=== PATIENT | female | born 1960 | race Hispanic/Latino ===

== ENCOUNTER 2024-03-03 03:06 | Observation (INO) | payer SELFPAY ==
[2024-03-03 04:08] LABS: Absolute Lymphocytes (CBC) 1.1 K/uL (0.7-4.9); Absolute Monocytes 0.5 K/uL (0.1-1.3); Absolute Neutrophil 4.1 K/uL (1.8-8.0); Basophils % 0.5 % (0-1.3); Hematocrit 39.1 % (36.0-45.0); Hemoglobin 12.8 g/dL (12.0-15.0); Lymphocytes % 18.5 % (15.3-44.8); MCH 29.2 pg (27.0-35.0); MCHC 32.8 g/dL (32.0-36.0); MCV 89.1 fL (80-100); MPV 8.9 fL (7.6-11.3); Monocytes % 9.5 % (3.3-12.3); Neutrophils % 71.5 % (41.7-73.7); Platelets 261 thou/uL (152-406); RBC Red Blood Cell Count 4.39 M/uL (3.86-4.86); Red Cell Distribution Width 14.9 % (12.1-15.2)
[2024-03-03] MEDS ORDERED: NA CHLORIDE 0.9% 1,000 ML ONE (04:17)
[2024-03-03 04:20] LABS: PT Prothrombin Time 11.5 SECONDS (9.4-12.5); PTT, Activated Partial Thromb 33.3 SECONDS (24.3-36.9); Protime INR 1.05
[2024-03-03 04:37] LABS: ALT/SGPT 18 U/L (13-56); AST/SGOT 18 U/L (15-37); Albumin 3.4 g/dL (3.4-5.0); Alkaline Phosphatase 43 U/L (45-117); Anion Gap 14.8 mEq/L (5.0-15.0); BUN Blood Urea Nitrogen 32 mg/dL (7-18); Bicarbonate 23 mEq/L (21-32); Bilirubin Total 0.6 mg/dL (0.2-1.0); Globulin 3.4 g/dL (2.3-3.5); Glomerular Filtration Rate 76 ml/min (=/>90); Glucose Level 87 mg/dL (74-106); Potassium 3.8 mEq/L (3.5-5.1); Protein, Total 6.8 g/dL (6.4-8.2); Sodium Level 144 mEq/L (136-145)
[2024-03-03 04:37] LABS: Barbiturates NEGATIVE (NEGATIVE); Benzodiazepines NEGATIVE (NEGATIVE); Cocaine NEGATIVE (NEGATIVE); METHAMPHETAM NEGATIVE (NEGATIVE); Methadone NEGATIVE (NEGATIVE); Opiates NEGATIVE (NEGATIVE); Phencyclidine NEGATIVE (NEGATIVE); THC Cannibis NEGATIVE (NEGATIVE)
[2024-03-03 04:38] LABS: Bilirubin Direct < 0.2 mg/dL (0-0.2); Bilirubin Indirect, Calculated 0.4 mg/dL (0.2-0.8)
[2024-03-03 05:52] LABS: Specific Gravity > 1.030 (1.005-1.030); Sqamous Epithelial <5 /HPF (None Seen); Urine Bacteria None Seen /HPF (<20); Urine Bilirubin NEGATIVE (Negative); Urine Blood Negative (Negative); Urine Clarity Clear (Clear); Urine Color Yellow (Yellow); Urine Culture Reflex Order NOT NEEDED; Urine Glucose NEGATIVE (Negative); Urine Ketones 3+ (Negative); Urine Microscopic Reflex YN ORDER UMIC; Urine Mucus 4+ /HPF (None Seen); Urine Nitrite NEGATIVE (Negative); Urine Protein 1+ (Negative); Urine RBC <5 /HPF (None Seen); Urine Urobilinogen 1+ (Normal); Urine WBC <5 /HPF (<5); Urine pH 5.5 (5.0-7.0)
[2024-03-03] MEDS: D5 0.45 NS 1,000 ML IV SCH (06:00)
--- NOTE | 2024-03-03 06:19 | EDPHYS ---
Physician Documentation [facility] Name: Julia Adame Age: 63 yrs Sex: Female : 1960 Arrival Date: 03/03/2024 Time: 03:06 Bed 5 Private MD: ED Physician Royer Hernadez HPI: 03/03 03:24 This 63 yrs old Female presents to ER via EMS with complaints of Altered sp4 Mental Status. 05:03 63-year-old female with unknown name was found by the police station sitting on the sp4 curb. Patient is not speaking. Patient appears homeless and disheveled. . - Immunization history:: unable to obtain. - Infectious Disease History:: unable to obtain. - Social history:: unknown. - Family history:: not pertinent. ROS: 05:03 Constitutional: full ROS not available secondary to nonverbal status sp4 05:03 All other systems are negative, 05:03 Unable to obtain ROS due to patient being uncooperative, Exam: 05:03 Constitutional: This is a well developed, well nourished patient who is awake, sp4 disheveled patient, appears homeless, poor hygiene Head/Face: Normocephalic, atraumatic. Eyes: Pupils equal round and reactive to light, extra-ocular motions intact. Lids and lashes normal. Conjunctiva and sclera are not injected. Cornea within normal limits. Periorbital areas with no swelling, redness, or edema. ENT: Nares patent. No nasal discharge, no septal abnormalities noted. Tympanic membranes are normal and external auditory canals are clear. Oropharynx with no redness, swelling, or masses, exudates, or evidence of obstruction, uvula midline. Mucous membranes moist. Neck: Trachea midline, no thyromegaly or masses palpated, and no cervical lymphadenopathy. Supple, full range of motion without nuchal rigidity, or vertebral point tenderness. Chest/axilla: Normal chest wall appearance and motion. Nontender with no deformity. No lesions are appreciated. Cardiovascular: Regular rate and rhythm with a normal S1 and S2. No gallops, murmurs, or rubs. Normal PMI, no JVD. No pulse deficits. Respiratory: Lungs have equal breath sounds bilaterally, clear to auscultation and percussion. No rales, rhonchi or wheezes noted. No increased work of breathing, no retractions or nasal flaring. Abdomen/GI: Soft, with normal bowel sounds. No distension or tympany. No guarding or rebound. No evidence of tenderness throughout. Back: No spinal tenderness. No costovertebral tenderness. Female : Normal external genitalia. Skin: Warm, dry with normal turgor. Normal color with no rashes, no lesions, and no evidence of cellulitis. MS/ Extremity: Pulses equal, no cyanosis. Neurovascular intact. Full, normal range of motion. Neuro: Awake , patient is a seemingly refusing to communicate, moves all extremities, does have some degree of generalized weakness, signs of dehydration, in general no sign of lateralizing neurologic deficit 05:06 ECG was reviewed by the Attending Physician. Normal sinus rhythm at rate of 78, normal sp4 EKG Vital Signs: 03:11 BP 113 / 75; Pulse 82; Resp 18; Temp 98.7; Pulse Ox 100% on R/A; Pain 0/10; kd4 05:30 BP 103 / 81; Pulse 82; Resp 17; Temp 98.5; Pulse Ox 100% on R/A; Pain 0/10; kd4 07:00 BP 96 / 66; Pulse 66; Resp 18; Temp 98.3; Pulse Ox 100% on R/A; Pain 0/10; kd4 08:09 BP 107 / 76; Pulse 68; Resp 18; Pulse Ox 100% on R/A; ld1 03:11 Pain Scale: Adult kd4 05:30 Pain Scale: Adult kd4 07:00 Pain Scale: Adult kd4 NIH Stroke Scale Scores: 03:22 NIHSS Score: 5 kd4 [place] Coma Score: 03:22 Eye Response: spontaneous(4). Motor Response: obeys commands(6). Verbal Response: kd4 none(1). Total: 11. 05:03 Eye Response: spontaneous(4). Motor Response: localizes pain(5). Verbal Response: sp4 none(1). Total: 10. MDM: 03:35 Patient medically screened. sp4 06:17 Differential Diagnosis: electrolyte abnormality, alcohol intoxication, hypoglycemia, sp4 intracranial bleed, overdose, pneumonia, seizure. Data reviewed: vital signs, nurses notes, lab test result(s), EKG, radiologic studies, CT scan. Consideration of Admission/Observation Patient was admitted/placed on observation. Escalation of care including admission/observation considered. Management of patient was discussed with the following: Hospitalist: Admit team . ED course: EXAM: CT Head Without Intravenous Contrast CLINICAL HISTORY: The patient is 63 years old and is Female; CONFUSED TECHNIQUE: Axial computed tomography images of the head/brain without intravenous contrast. Sagittal and coronal reformatted images were created and reviewed. This CT exam was performed using one or more of the following dose reduction techniques: automated exposure control, adjustment of the mA and/or kV according to patient size, and/or use of iterative reconstruction technique. COMPARISON: No relevant prior studies available. FINDINGS: Brain: Unremarkable. No hemorrhage. No significant white matter disease. No edema. Ventricles: Unremarkable. No ventriculomegaly. Bones/joints: Unremarkable. No acute skull fracture. Soft tissues: Unremarkable. Sinuses: Unremarkable as visualized. No acute sinusitis. Mastoid air cells: No significant mastoid fluid. IMPRESSION: No acute intracranial findings. No hemorrhage. . ED course: Admitted for altered mental status . 07:01 ED course: Patient was admitted for generalized weakness and altered mental status with sp4 nonverbal status. Presumed acute hypoactive delirium. 03/03 03:34 Order name: Acetaminophen; Complete Time: 04:56 sp4 03/03 03:34 Order name: Basic Metabolic Panel; Complete Time: 04:56 sp4 03/03 03:34 Order name: CBC with Diff; Complete Time: 04:56 sp4 03/03 03:34 Order name: ETOH Level; Complete Time: 04:56 sp4 03/03 03:34 Order name: Hepatic Function; Complete Time: 04:56 sp4 03/03 03:34 Order name: PT-INR; Complete Time: 04:56 sp4 03/03 03:34 Order name: Ptt, Activated; Complete Time: 04:56 sp4 03/03 03:34 Order name: Salicylate; Complete Time: 05:46 sp4 03/03 03:34 Order name: Urinalysis w/ reflexes; Complete Time: 06:05 sp4 03/03 03:34 Order name: Urine Drug Screen; Complete Time: 04:56 sp4 03/03 05:09 Order name: CK; Complete Time: 06:18 sp4 03/03 06:04 Order name: CBC with Automated Diff EDMS 03/03 06:04 Order name: CBC with Automated Diff EDMS 03/03 06:04 Order name: CBC with Automated Diff EDMS 03/03 06:04 Order name: Comprehensive Metabolic Panel EDMS 03/03 06:04 Order name: Comprehensive Metabolic Panel EDMS 03/03 06:04 Order name: Comprehensive Metabolic Panel EDMS 03/03 06:04 Order name: Creatine Phosphokinase EDMS 03/03 06:04 Order name: Lipid Profile EDMS 03/03 06:04 Order name: Lipid Profile; Complete Time: 07:01 EDMS 03/03 06:19 Order name: Urinalysis W/Microscopic sp4 03/03 06:57 Order name: Thyroid Stimulating Hormone; Complete Time: 07:01 EDMS 03/03 03:35 Order name: CT Head Brain wo Cont sp4 03/03 03:34 Order name: EKG; Complete Time: 03:35 sp4 03/03 03:34 Order name: EKG - Nurse/Tech; Complete Time: 04:57 sp4 03/03 03:34 Order name: IV Saline Lock; Complete Time: 04:14 sp4 03/03 03:34 Order name: Labs collected and sent; Complete Time: 04:14 sp4 03/03 03:34 Order name: Suicide Screening ([place]); Complete Time: 04:57 sp4 03/03 04:45 Order name: Cath; Complete Time: 05:13 sp4 EC:06 Rate is 78 beats/min. Rhythm is regular, Normal Sinus Rhythm. QRS [place] is Normal. [place] sp4 interval is normal. QRS interval is normal. QT interval is normal. No Q waves. T waves are Normal. No ST changes noted. Clinical impression: Normal ECG. Interpreted by me. Reviewed by me. Administered Medications: 04:39 Drug: NS 0.9% IV 1000 ml IV at 1 bolus Per protocol; 1000 mL bolus Route: IV; Rate: 1 kd4 bolus; Site: right antecubital; 06:03 Follow up: IV Status: Completed infusion kd4 Disposition Summary: 03/03/24 06:18 Hospitalization Ordered Notes: Hospitalization Status: Observation sp4 Provider: Betito Baumann Location: Telemetry/MedSurg (observation) sp4 Condition: Stable sp4 Problem: new sp4 Symptoms: have improved sp4 Bed/Room Type: Standard sp4 Room Assignment: 402(03/03/24 06:22) [facility] Diagnosis - Generalized weakness, acute hypoactive delirium sp4 Forms: - Medication Reconciliation Form sp4 - SBAR form sp4 - Leadership Thank You Letter sp4 NIH Stroke Scale - NIH Stroke Score Date: 03/03/2024 Time: 03:22 Total Score = 5 10. Dysarthria (speech clarity - read or repeat words) - UN(Intubated) - Notes: non verbal 11. Extinction and Inattention (visual/tactile/auditory/spatial/personal) - 0(No abnormality) 1a. Level of Consciousness (LOC) - 0(Alert) 1b. Level of Consciousness (LOC) (Month \T\ Age) - 2(Neither) 1c. LOC Commands (Open \T\ Closes Eyes/Administrative Court Justice) - 0(Both) 2. Best Gaze (Lateral Gaze Paresis) - 0(Normal) 3. Visual Field Loss - 0(No visual loss) 4. Facial Palsy - 0(Normal) 5a. Left Arm: Motor (10-second hold) - 0(No drift) 5b. Right Arm: Motor (10-second hold) - 0(No drift) 6a. Left Leg: Motor (5-second hold - always test supine) - 0(No drift) 6b. Right Leg: Motor (5-second hold - always test supine) - 0(No drift) 7. Limb Ataxia (finger/nose \T\ heel/aly - test with eyes open) - 0(Absent) 8. Sensory Loss (pinprick arms/legs/face) - 0(Normal) 9. Best Language: Aphasia (description/naming/reading) - 3(Mute, global aphasia) Initials: kd4 Signatures: Dispatcher [employer] EDMS Glenna Roca, NAPPER FIXER-C NAPPER FIXER-Csnw Royer Hernadez MD MD sp4 Brit Trivedi f Navneet Stark RN RN kd4 Corrections: (The following items were deleted from the chart) 06:14 06:04 Creatine Phosphokinase ordered. EDMS EDMS 06:14 06:04 Creatine Phosphokinase ordered. EDMS EDMS 06:19 06:19 Urinalysis W/Microscopic+U.LAB.BRZ ordered. EDMS EDMS 06: 06:18 sp4 [facility]
--- NOTE | 2024-03-03 06:19 | ER ---
Nurse's Notes [facility] Name: Julia Adame Age: 63 yrs Sex: Female : 1960 Arrival Date: 03/03/2024 Time: 03:06 Bed 5 Private MD: Diagnosis: Generalized weakness, acute hypoactive delirium Presentation: 03/03 03:11 Chief complaint: EMS states: per emas patient was found in front of station by police , kd4 non verbal but alert. unable to identify patient. patient wet. Coronavirus screen: At this time, unable to obtain information related to travel outside the [place] Ebola Screen: No symptoms or risks identified at this time. Initial Sepsis Screen: Does the patient meet any 2 criteria? No. Patient's initial sepsis screen is negative. Does the patient have a suspected source of infection? No. Patient's initial sepsis screen is negative. Risk Assessment: Do you want to hurt yourself or someone else? Unable to obtain. Onset of symptoms is unknown. 03:11 Method Of Arrival: EMS kd4 03:11 Acuity: KIRILL 3 kd4 Triage Assessment: 03:11 General: Appears unkempt, Behavior is calm, cooperative. Pain: Unable to use pain kd4 scale. non verbal. Neuro: Level of Consciousness is awake, alert, obeys commands, non verbal. Oriented to unable to assess. Cardiovascular: patient appears cold. Respiratory: No deficits noted. GI: No deficits noted. : patient wet, unsure on incontinence status. Derm: Skin some skin breakdown. Skin is moist, Skin temperature is cool. Musculoskeletal:. - Immunization history:: unable to obtain. - Infectious Disease History:: unable to obtain. - Social history:: unknown. - Family history:: not pertinent. Screenin: [facility] ED Fall Risk Assessment (Adult) History of falling in the last 3 months, kd4 including since admission Yes- fall prone (multiple falls) (3 pts) Confusion or Disorientation No (0 pts) Intoxicated or Sedated No (0 pts) Impaired Gait Yes (1 pt) Mobility Assist Device Used Yes (1 pt) Altered Elimination Yes (1 pt) Score/Fall Risk Level 3 or more points = High Risk Oriented to surroundings, Maintained a safe environment, Assessed \T\ reinforced patient's understanding of fall precautions, Hourly rounding (assess needs \T\ fall precautionary measures) done, Implemented a Fall Risk Plan of Care, Apply high fall risk patient identification: yellow non skid footwear/ fall signage. 04:40 Abuse screen: unable to assess. kd4 Assessment: 03:22 Reassessment: refer to TRIAGE assessment. kd4 04:00 Reassessment: [place] [employer] at bedside, pt still unable to give name or , pt will not speak. [place] comparing pt to photos of missing people with no success. . 05:31 Reassessment: patient cleaned up, bed linen changed, diaper applied. kd4 07:10 Reassessment: Chart faxed to unit, called to inform, no answer. kd4 08:09 General: Appears in no apparent distress. comfortable, Behavior is calm, cooperative, ld1 appropriate for age. Neuro: Level of Consciousness is awake, alert, Oriented to pt wont speak to staff.. Cardiovascular: Capillary refill < 3 seconds Patient's skin is warm and dry. Rhythm is sinus rhythm. Respiratory: Airway is patent Respiratory effort is even, unlabored. GI: Abdomen is flat, non-distended. : No signs and/or symptoms were reported regarding the genitourinary system. Psych: 04:58 Subjective: Patient non verbal , unable to assess. kd4 Vital Signs: 03:11 BP 113 / 75; Pulse 82; Resp 18; Temp 98.7; Pulse Ox 100% on R/A; Pain 0/10; kd4 05:30 BP 103 / 81; Pulse 82; Resp 17; Temp 98.5; Pulse Ox 100% on R/A; Pain 0/10; kd4 07:00 BP 96 / 66; Pulse 66; Resp 18; Temp 98.3; Pulse Ox 100% on R/A; Pain 0/10; kd4 08:09 BP 107 / 76; Pulse 68; Resp 18; Pulse Ox 100% on R/A; ld1 03:11 Pain Scale: Adult kd4 05:30 Pain Scale: Adult kd4 07:00 Pain Scale: Adult kd4 [place] Coma Score: 03:22 Eye Response: spontaneous(4). Motor Response: obeys commands(6). Verbal Response: kd4 none(1). Total: 11. 05:03 Eye Response: spontaneous(4). Motor Response: localizes pain(5). Verbal Response: sp4 none(1). Total: 10. NIH Stroke Scale Scores: 03:22 NIHSS Score: 5 kd4 ED Course: 03:10 Patient arrived in ED. gm2 03:11 Patient placed on monitor. kd4 03:16 Triage completed. kd4 03:22 Client placed on continuous cardiac and pulse oximetry monitoring. NIBP monitoring kd4 applied. store manager on. Pulse ox on. NIBP on. 03:23 Royer Hernadez MD is Attending Physician. sp4 04:13 Initial lab(s) drawn, by me, sent to lab. Urine collected: straight cath specimen, kd4 clear. Inserted saline lock: 20 gauge in right antecubital area, using aseptic technique. Blood collected. 04:16 CT Head Brain wo Cont In Process Unspecified. EDMS 06:18 Betito Baumann MD is Hospitalizing Provider. sp4 08:10 Arm band placed on right wrist. ld1 Administered Medications: 04:39 Drug: NS 0.9% IV 1000 ml IV at 1 bolus Per protocol; 1000 mL bolus Route: IV; Rate: 1 kd4 bolus; Site: right antecubital; 06:03 Follow up: IV Status: Completed infusion kd4 Medication: 08:11 VIS not applicable for this client. ld1 Outcome: 06:18 Decision to Hospitalize by Provider. sp4 08:10 Admitted to Med/surg accompanied by tech, via wheelchair, ld1 08:10 Condition: stable 08:10 Instructed on the need for admit, 08:11 Patient left the ED. ld1 NIH Stroke Scale - NIH Stroke Score Date: 03/03/2024 Time: 03:22 Total Score = 5 10. Dysarthria (speech clarity - read or repeat words) - UN(Intubated) - Notes: non verbal 11. Extinction and Inattention (visual/tactile/auditory/spatial/personal) - 0(No abnormality) 1a. Level of Consciousness (LOC) - 0(Alert) 1b. Level of Consciousness (LOC) (Month \T\ Age) - 2(Neither) 1c. LOC Commands (Open \T\ Closes Eyes/Blacksmith Hammer Operator) - 0(Both) 2. Best Gaze (Lateral Gaze Paresis) - 0(Normal) 3. Visual Field Loss - 0(No visual loss) 4. Facial Palsy - 0(Normal) 5a. Left Arm: Motor (10-second hold) - 0(No drift) 5b. Right Arm: Motor (10-second hold) - 0(No drift) 6a. Left Leg: Motor (5-second hold - always test supine) - 0(No drift) 6b. Right Leg: Motor (5-second hold - always test supine) - 0(No drift) 7. Limb Ataxia (finger/nose \T\ heel/aly - test with eyes open) - 0(Absent) 8. Sensory Loss (pinprick arms/legs/face) - 0(Normal) 9. Best Language: Aphasia (description/naming/reading) - 3(Mute, global aphasia) Initials: kd4 Signatures: Dispatcher [employer] EDSheila Nascimento, SULY RN ld1 Kasia Jordan RN RN vc1 Royer Hernadez MD MD sp4 Varsha Stark 2 Navneet Stark RN RN kd4
--- NOTE | 2024-03-03 06:23 | P.HP ---
Certification for Inpatient Patient admitted to: Observation With expected LOS: <2 Midnights Patient will require the following post-hospital care: Other (law enforcement) Practitioner: I am a practitioner with admitting privileges, knowledge of patient current condition, hospital course, and medical plan of care. Services: Services provided to patient in accordance with Admission requirements found in Title 42 Section 412.3 of the Code of Federal Regulations <Sharon Rocaallie Mojica - Last Filed: 03/03/24 06:15> Patient History Date of Service: 03/03/24 Reason for admission: AMS History of Present Illness: I was asked to admit this female patient after evaluation in the emergency department for being nonverbal, disheveled, and mildly dehydrated. Apparently law enforcement found this lady in a parking lot of a convenience store. She remains nonverbal but is alert and awake. We have not been able to ascertain her name, age, living situation, medical history. Her age appears between 48 and 63. She wakes to voice, moves all extremities, is thin, disheveled, and smells of urine. Labs: WBC 5.8 with no shift, H/H 12 .8/39.1, platelets 261, sodium 144, potassium 3.8, chloride 110, CO2 23, glucose 87, BUN 32, creatinine 0.85 with a GFR of 76. UDS, salicylate level negative, liver enzymes normal, albumin 3.4, INR 1.05, urine shows high concentration with 3+ ketones with 1+ protein and 1+ bilirubin. CT head reported as negative for acute findings. She was given a 1 L normal saline bolus in the emergency depart ment. At this time we will admit her for dehydration, altered mental status and observe with either a direct observation room or with a sitter. Home medications list reviewed: No - Past Medical/Surgical History Past Medical History: Unable to obtain Past Surgical History: Unable to obtain - Social History Place of Residence: Homeless <Glenna Roca - Last Filed: 03/03/24 06:15> Date of Service: 03/03/24 <Betito Baumann - Last Filed: 03/03/24 12:41> Review of Systems 10-point ROS is otherwise unremarkable General: Malaise, As per HPI Neurological: As per HPI <Glenna Roca - Last Filed: 03/03/24 06:15> Physical Examination - Physical Exam General: Alert, In no apparent distress, Disheveled, Other (uncooperative) HEENT: Atraumatic, Normocephalic Neck: Supple Respiratory: Normal air movement Cardiovascular: No edema, Normal pulses, Regular rate/rhythm Capillary refill: <2 Seconds Gastrointestinal: Soft and benign Musculoskeletal: No clubbing, No swelling Integumentary: Other (apparent insect bites to lower extremities) Neurological: Normal tone, Abnormal affect Lymphatics: No axilla or inguinal lymphadenopathy External genitalia: Deferred Rectal: Deferred - Studies Laboratory Data (last 24 hrs) 03/03/24 03/03/24 03/03/24 03:46 03:46 03:46 WBC 5.80 Hgb 12.8 Hct 39.1 Plt Count 261 PT 11.5 INR 1.05 APTT 33.3 Sodium 144 Potassium 3.8 BUN 32 H Creatinine 0.85 Glucose 87 Total Bilirubin 0.6 AST 18 ALT 18 Alkaline Phosphatase 43 L <Glenna Roca - Last Filed: 03/03/24 06:15> - Studies Laboratory Data (last 24 hrs) 03/03/24 03/03/24 03/03/24 03:46 03:46 03:46 WBC 5.80 Hgb 12.8 Hct 39.1 Plt Count 261 PT 11.5 INR 1.05 APTT 33.3 Sodium Potassium BUN Creatinine Glucose Total Bilirubin AST ALT Alkaline Phosphatase Triglycerides 64 Cholesterol 189 HDL Cholesterol 66 H Cholesterol/HDL Ratio 2.86 03/03/24 03:46 WBC Hgb Hct Plt Count PT INR APTT Sodium 144 Potassium 3.8 BUN 32 H Creatinine 0.85 Glucose 87 Total Bilirubin 0.6 AST 18 ALT 18 Alkaline Phosphatase 43 L Triglycerides Cholesterol HDL Cholesterol Cholesterol/HDL Ratio <Betito Baumann - Last Filed: 03/03/24 12:41> Assessment and Plan - Plan AMS/Nonverbal/Social disability Observe Monitor and trend Neurochecks q 2h Explore differential dx Dehydration s/p 1L NS in ED D5LR at 100ml/hr regular diet VRE prophylaxis TEDS - Advance Directives Does patient have a Living Will: No Does patient have a Durable POA for Healthcare: No <Glenna Roca - Last Filed: 03/03/24 06:15> - Plan Pt seen and examined. I agree with the note by the GAS JOCKEY. Pt is a 63yo female with unknown medical problem who presents with AMS. Pt is non-verbal but she is awake an alert. Lab studies show wbc 5.8, Hgb 12.8, Cr 3.8, Cr 0.85. CT head is unremarkable. At bedside, pt is in NAD. A/P: AMS: Unknown etiology. CT head is unremarkable. UDS is unremarkable. Will check UA and Ammonia level. Continue neurochecks Dehydration: Will continue IVF. DVT ppx: lovenox Code: full <Betito Baumann - Last Filed: 03/03/24 12:41>
[2024-03-03 08:27] VITALS: O2SAT 100
[2024-03-03] MEDS: D5LR 1,000 ML IV SCH (08:57)
[2024-03-03] MEDS: NA CHLORIDE 0.9% 1,000 ML IV ONE ×2 (11:46→20:36)
[2024-03-03 11:49] VITALS: BMI 20.1
[2024-03-04 05:59] VITALS: TEMP 97.8
[2024-03-04 06:52] LABS: Absolute Eosinophils 0.1 K/uL (0-0.5); Absolute Lymphocytes (CBC) 1.2 K/uL (0.7-4.9); Absolute Monocytes 0.3 K/uL (0.1-1.3); Absolute Neutrophil 2.8 K/uL (1.8-8.0); Basophils % 0.7 % (0-1.3); Eosinophils % 1.3 % (0-4.4); Hematocrit 36.6 % (36.0-45.0); Hemoglobin 12.2 g/dL (12.0-15.0); Lymphocytes % 28.1 % (15.3-44.8); MCH 29.8 pg (27.0-35.0); MCHC 33.4 g/dL (32.0-36.0); MPV 9.3 fL (7.6-11.3); Monocytes % 6.9 % (3.3-12.3); Platelets 217 thou/uL (152-406); RBC Red Blood Cell Count 4.11 M/uL (3.86-4.86); Red Cell Distribution Width 14.1 % (12.1-15.2)
[2024-03-04 07:28] LABS: Albumin 2.3 g/dL (3.4-5.0); Albumin/Globulin Ratio 0.9 (1.1-1.8); Bilirubin Total 0.4 mg/dL (0.2-1.0); Globulin 2.5 g/dL (2.3-3.5); Protein, Total 4.8 g/dL (6.4-8.2)
[2024-03-04 08:55] VITALS: BP 81/51
[2024-03-04] MEDS ORDERED: D5LR 1,000 ML IV SCH (09:02)
[2024-03-04] MEDS: POTASSIUM CL SA 10 MEQ TAB PO SCH (09:12)
--- NOTE | 2024-03-04 10:24 | P.DS ---
Admission Date: 03/03/24 Discharge Date: 03/04/24 Reason for Admission: AMS Consultations: Law enforcement. Brief History of Present Illness: I was asked to admit this female patient after evaluation in the emergency department for being nonverbal, disheveled, and mildly dehydrated. Apparently law enforcement found this lady in a parking lot of a convenience store. She remains nonverbal but is alert and awake. We have not been able to ascertain her name, age, living situation, medical history. Her age appears between 48 and 63. She wakes to voice, moves all extremities, is thin, disheveled, and smells of urine. Labs: WBC 5.8 with no shift, H/H 12.8/39.1, platelets 261, sodium 144, potassium 3.8, chloride 110, CO2 23, glucose 87, BUN 32, creatinine 0.85 with a GFR of 76. UDS, salicylate level negative, liver enzymes normal, albumin 3.4, INR 1.05, urine shows high concentration with 3+ ketones with 1+ protein and 1+ bilirubin. CT head reported as negative for acute findings. She was given a 1 L normal saline bolus in the emergency department. At this time we will admit her for dehydration, altered mental status and observe with either a direct observation room or with a sitter. Hospital Course: Pt was brought to hospital ED noncommunicative but alert. She was evaluated for AMS. Laboratory, physical assessment, and imaging findings without derangement. She was hydrated. She has been calm and cooperative but non verbal. She was admitted for observation to have neuro checks. Monitoring of vital signs, labs, and intake and output. No medical problems have been uncovered. She no longer warrants hospital care but has not been identified at this time. Police dept contacted for help and stated the pt is not in custody, not communicative, and they have no way of identifying her. Queried course of action as the patient has no medical needs at present and does not need hospital care. Encouraged to discharge per standard discharge protocol. <Glenna Roca - Last Filed: 03/04/24 10:15> Admission Date: 03/03/24 Discharge Date: 03/04/24 Hospital Course: Pt seen and examined. I agree with the note by the SECURITIES ATTORNEY. She is awake and alert. Pt told nurse that her name is Kirti. Ammonia level is normal. Will dc pt to the custody of the police because there is no medical problem to be addressed at this time. Ok to discharge pt. <Betito Baumann - Last Filed: 03/04/24 12:39> Disposition: ROUTINE DISCHARGE Discharge Condition: GOOD Vital Signs/Physical Exam: Temp Pulse Resp BP Pulse Ox 97.8 F 70 16 81/51 L 100 03/04/24 08:00 03/04/24 08:00 03/04/24 08:00 03/04/24 08:00 03/04/24 08:00 General: Alert, In no apparent distress, Cooperative HEENT: Atraumatic, Normocephalic Neck: Supple Respiratory: Normal air movement Cardiovascular: Normal pulses, Regular rate/rhythm, Normal S1 S2 Capillary refill: <2 Seconds Gastrointestinal: Soft and benign Musculoskeletal: No clubbing Integumentary: No breakdown Neurological: Normal speech, Normal tone Lymphatics: No axilla or inguinal lymphadenopathy External genitalia: Deferred Rectal: Deferred Laboratory Data at Discharge: WBC 4.40 thou/uL (4.3-10.9) 03/04/24 06:07 Hgb 12.2 g/dL (12.0-15.0) 03/04/24 06:07 Hct 36.6 % (36.0-45.0) 03/04/24 06:07 Plt Count 217 thou/uL (152-406) 03/04/24 06:07 PT 11.5 SECONDS (9.4-12.5) 03/03/24 03:46 INR 1.05 03/03/24 03:46 APTT 33.3 SECONDS (24.3-36.9) 03/03/24 03:46 Sodium 140 mEq/L (136-145) 03/04/24 06:07 Potassium 3.0 mEq/L (3.5-5.1) L D 03/04/24 06:07 BUN 10 mg/dL (7-18) 03/04/24 06:07 Creatinine 0.53 mg/dL (0.55-1.02) L 03/04/24 06:07 Glucose 93 mg/dL (74-106) 03/04/24 06:07 Magnesium 1.5 mg/dL (1.6-2.4) L 03/04/24 09:38 Total Bilirubin 0.4 mg/dL (0.2-1.0) 03/04/24 06:07 AST 16 U/L (15-37) 03/04/24 06:07 ALT 15 U/L (13-56) 03/04/24 06:07 Alkaline Phosphatase 41 U/L (45-117) L 03/04/24 06:07 Triglycerides 64 mg/dL (<150) 03/03/24 03:46 Cholesterol 189 mg/dL (<200) 03/03/24 03:46 HDL Cholesterol 66 mg/dL (40-60) H 03/03/24 03:46 Cholesterol/HDL Ratio 2.86 03/03/24 03:46 <Roca,Glenna Yunior - Last Filed: 03/04/24 10:15> Vital Signs/Physical Exam: Temp Pulse Resp BP Pulse Ox 97.8 F 70 16 81/51 L 100 03/04/24 08:00 03/04/24 08:00 03/04/24 08:00 03/04/24 08:00 03/04/24 08:00 Laboratory Data at Discharge: WBC 4.40 thou/uL (4.3-10.9) 03/04/24 06:07 Hgb 12.2 g/dL (12.0-15.0) 03/04/24 06:07 Hct 36.6 % (36.0-45.0) 03/04/24 06:07 Plt Count 217 thou/uL (152-406) 03/04/24 06:07 PT 11.5 SECONDS (9.4-12.5) 03/03/24 03:46 INR 1.05 03/03/24 03:46 APTT 33.3 SECONDS (24.3-36.9) 03/03/24 03:46 Sodium 140 mEq/L (136-145) 03/04/24 06:07 Potassium 3.0 mEq/L (3.5-5.1) L D 03/04/24 06:07 BUN 10 mg/dL (7-18) 03/04/24 06:07 Creatinine 0.53 mg/dL (0.55-1.02) L 03/04/24 06:07 Glucose 93 mg/dL (74-106) 03/04/24 06:07 Magnesium 1.5 mg/dL (1.6-2.4) L 03/04/24 09:38 Total Bilirubin 0.4 mg/dL (0.2-1.0) 03/04/24 06:07 AST 16 U/L (15-37) 03/04/24 06:07 ALT 15 U/L (13-56) 03/04/24 06:07 Alkaline Phosphatase 41 U/L (45-117) L 03/04/24 06:07 Triglycerides 64 mg/dL (<150) 03/03/24 03:46 Cholesterol 189 mg/dL (<200) 03/03/24 03:46 HDL Cholesterol 66 mg/dL (40-60) H 03/03/24 03:46 Cholesterol/HDL Ratio 2.86 03/03/24 03:46 <Betito Baumann - Last Filed: 03/04/24 12:39> Diet: Regular Activity: Ad santosh <Glenna Roca - Last Filed: 03/04/24 10:15> <Betito Baumann - Last Filed: 03/04/24 12:39> Physician Discharge Instructions: Okay to DC IV and DC home Follow-up with primary care provider in 1 to 2 weeks Please call the inpatient unit for any questions or concerns regarding hospital stay Return to the ER for worsening symptoms Followup: NONE,NONE [Primary Care Provider] -
[2024-03-04] MEDS ORDERED: MAGNESIUM OXIDE 400 MG TAB PO ONE (10:28)
--- NOTE | 2024-03-05 13:09 | EKG ---
Test Date: 2024-03-03 Test Time: 04:55:21 Internet Marketing Strategist: TATYANA MEASUREMENT RESULTS: Intervals: Rate: 78 CO: 132 QRSD: 84 QT: 422 QTc: 481 [place]: P: 54 CO: 132 QRS: 39 T: 59 INTERPRETIVE STATEMENTS: Normal sinus rhythm Normal ECG No previous ECG available for comparison Electronically Signed On 03-05-24 13:03:55 CDT by Laz Ewing
--- NOTE | 2024-03-05 18:51 | RAD REPORT ---
EXAM DESCRIPTION: CT - Head Brain Wo Cont - 03/03/2024 6:42 am CLINICAL HISTORY: The patient is 63 years old and is Female; CONFUSED TECHNIQUE: Axial computed tomography images of the head/brain without intravenous contrast. Sagitt al and coronal reformatted images were created and reviewed. This CT exam was performed using one o r more of the following dose reduction techniques: automated exposure control, adjustment of the mA and/or kV according to patient size, and/or use of iterative reconstruction technique. COMPARISON: No relevant prior studies available. FINDINGS: Brain: Unremarkable. No hemorrhage. No significant white matter disease. No edema. Ventricles: Unremarkable. No ventriculomegaly. Bones/joints: Unremarkable. No acute skull fracture. Soft tissues: Unremarkable. Sinuses: Unremarkable as visualized. No acute sinusitis. Mastoid air cells: No significant mastoid fluid. IMPRESSION: No acute intracranial findings. No hemorrhage. Electronically signed by: Stephanie Gayle MD 03/03/2024 05:56 AM CDT RP ND Due to temporary technical issues with the PACS/Fluency reporting system, reports are being signed by the in house radiologists without review as a courtesy to insure prompt reporting. The interpreting radiologist is fully responsible for the content of the report.
== END 2024-03-04 11:45 | disposition home or self-care (01) ==
LOC: ER 03:06 → 4TH 05:56
PROVIDERS: ADMIT Hospitalist; ATTEND Hospitalist
DX: R41.82 Altered mental status, unspecified (principal); E86.0 Dehydration; Z59.02 Unsheltered homelessness
CPT/HCPCS: 36415; 70450; 80048; 80053; 80061; 80076; 80143; 80179; 80307; 81001; 82077; 82140; 82550; 82947; 83735; 84443; 85025; 85610; 85730; 93005; 96360; 99285; G0378; J7030; J7121